=== PATIENT | female | born 2000 | race Asian ===

== ENCOUNTER 2020-09-02 09:19 | Emergency (ER) | payer OTHER ==
[2020-09-02 09:34] VITALS: BP 128/84; PULSE 77; TEMP 99; BMI 28.3
[2020-09-02] MEDS ORDERED: ACETAMINOPHEN 160 MG/5 ML *Children Solution PO ONE (09:53)
[2020-09-02] MEDS ORDERED: IBUPROFEN 100 MG/5 ML UNIT DOSE CUPS PO ONE (09:53)
[2020-09-02] MEDS ORDERED: AMOX TR/POT CLAV 875MG/125MG TABLETS (FP) PO ONE (09:54)
[2020-09-02] MEDS ORDERED: IBUPROFEN 100 MG/5 ML UNIT DOSE CUPS ONE (09:55)
[2020-09-02] MEDS ORDERED: ACETAMINOPHEN 650 MG/20.3 ML ORAL SOLUTION (CUPS) ONE (09:55)
[2020-09-02] MEDS ORDERED: AMOX TR/POT CLAV 875MG/125MG TABLETS (FP) ONE (09:56)
== END 2020-09-02 10:08 | disposition home or self-care (01) ==
LOC: FER 09:19
DX: H60.90 Unspecified otitis externa, unspecified ear (principal)
CPT/HCPCS: 99283-25

== ENCOUNTER 2023-02-23 15:22 | Emergency (ER) | payer OTHER ==
[2023-02-23 15:51] VITALS: BP 131/78; PULSE 103; RESP 18; TEMP 98.5; BMI 36.3
[2023-02-23] MEDS ORDERED: METOCLOPRAMIDE HCL INJECTION 10 MG/2 ML VIAL IVPUSH ONE (15:52)
[2023-02-23] MEDS ORDERED: ACETAMINOPHEN 1000 MG/100 ML BAG IVPB ONE (15:52)
[2023-02-23] MEDS ORDERED: SODIUM CHLORIDE 1,000 ML IV ONE (15:53)
[2023-02-23] MEDS ORDERED: ACETAMINOPHEN INJECTION 100 ML IVPB ONE (16:02)
[2023-02-23] MEDS ORDERED: METOCLOPRAMIDE HCL INJECTION 10 MG/2 ML VIAL ONE (16:02)
[2023-02-23 16:34] LABS: HEMATOCRIT 43.4 % (32.4-45.2); HEMOGLOBIN 14.5 G/dL (10.7-15.3); MCH 28.3 pg (25.7-33.7); MCHC 33.4 g/dl (32.0-36.0); MEAN CELL VOLUME 84.7 fl (80-96); MEAN PLT VOLUME 8.4 fl (7.5-11.1); PLATELET COUNT 328.4 10^3/uL (134-434); RBC 5.12 10^6/uL (3.60-5.2); RDW 14.2 % (11.6-15.6); WHITE BLOOD COUNT 11.2 10^3/uL (4.0-10.8)
[2023-02-23 16:49] LABS: HCG,QUALITATIVE URINE Negative
[2023-02-23 16:57] LABS: ALBUMIN 4.7 g/dl (3.4-5.0); BILIRUBIN,TOTAL 0.4 mg/dl (0.2-1); CALCIUM 9.5 mg/dl (8.5-10.1); CREATININE 0.6 mg/dl (0.6-1.3); POTASSIUM 4.2 mmol/L (3.5-5.1); TOT PROT 7.6 g/dl (6.4-8.2)
[2023-02-23 17:09] LABS: URINE MUCUS SMALL
[2023-02-23] MEDS ORDERED: KETOROLAC TROMETHAMINE 30 MG/1 ML VIAL IVPUSH ONE (17:23)
[2023-02-23] MEDS ORDERED: KETOROLAC TROMETHAMINE 30 MG/1 ML VIAL ONE (17:35)
== END 2023-02-23 18:29 | disposition home or self-care (01) ==
LOC: FER 15:22
PROC: 3E033NZ Introduction of Analgesics, Hypnotics, Sedatives into Peripheral Vein, Percutaneous Approach (ICD-10-PCS; principal; 2023-02-23)
PROC: 3E0333Z Introduction of Anti-inflammatory into Peripheral Vein, Percutaneous Approach (ICD-10-PCS; 2023-02-23)
PROC: 3E033GC Introduction of Other Therapeutic Substance into Peripheral Vein, Percutaneous Approach (ICD-10-PCS; 2023-02-23)
PROC: 3E0337Z Introduction of Electrolytic and Water Balance Substance into Peripheral Vein, Percutaneous Approach (ICD-10-PCS; 2023-02-23)
DX: U07.1 COVID-19 (principal); E86.0 Dehydration; R11.2 Nausea with vomiting, unspecified; R51.9 Headache, unspecified; R63.8 Other symptoms and signs concerning food and fluid intake; R05.9 Cough, unspecified
CPT/HCPCS: 36415; 80053; 81003; 81015; 84703; 85027; 99284-25